=== PATIENT | female | born 1965 | race Hispanic/Latino ===

== ENCOUNTER 2024-02-13 09:17 | Outpatient (CLI) | payer OTHER | END 2024-02-13 09:18 | disposition home or self-care (01) | LOC: SCSMRI 09:17 | PROVIDERS: ATTEND Nurse Practitioner Family | DX: Z02.6 Encounter for examination for insurance purposes (principal); S83.92XA Sprain of unspecified site of left knee, initial encounter; S83.242A Other tear of medial meniscus, current injury, left knee, initial encounter; S83.282A Other tear of lateral meniscus, current injury, left knee, initial encounter; M67.462 Ganglion, left knee ==

== ENCOUNTER 2024-03-06 12:12 | Outpatient (CLI) | payer BC ==
[2024-03-06 13:38] LABS: #Basophils 0.02 10x3/uL (0.0-0.2); #Eosinphils 0.11 10x3/uL (0.0-0.5); #Monocytes 0.44 10x3/uL (0.0-1.1); #Neutrophils 2.59 10x3/uL (1.5-8.4); %Basophils 0.3 % (0.0-2.0); %Eosinophils 1.7 % (0.0-6.0); %Lymphocytes 49.8 % (18.0-47.0); %Monocytes 6.9 % (0.0-10.0); Hematocrit 38.5 % (34.9-44.5); Hemoglobin 13.4 g/dL (12.0-15.5); Mean Corpuscular HGB CONC 34.8 g/dL (32.0-36.0); Mean Corpuscular Hemoglobin 32.8 pg (27.0-33.0); Mean Corpuscular Volume 94.1 fL (81.6-98.3); Mean Platelet Volume 9.1 fL (7.4-10.4); Platelet Count 340 10x3/uL (150-450); RBC Distribution Width 11.9 % (11.5-14.5); Red Blood Cell (RBC) Count 4.09 10x6/uL (3.90-5.03); White Blood Cell (WBC) Count 6.3 10x3/uL (3.5-10.5)
[2024-03-06 13:55] LABS: Anion Gap 14 mmol/L (10-20); BUN (Urea Nitrogen) 20 mg/dL (9.8-20.1); Calc. Creatinine Clearance 0 mL/min (70-130); Calcium 9.1 mg/dL (7.8-10.44); Carbon Dioxide 25 mmol/L (22-29); Chloride 105 mmol/L (98-107); Estimated GFR 78; Glucose 88 mg/dL (70-105); Sodium 140 mmol/L (136-145)
== END 2024-03-06 12:13 | disposition home or self-care (01) ==
LOC: LABBT 12:12
PROVIDERS: ATTEND Orthopaedic Surgery
DX: Z01.818 Encounter for other preprocedural examination (principal); S83.242A Other tear of medial meniscus, current injury, left knee, initial encounter; S83.282A Other tear of lateral meniscus, current injury, left knee, initial encounter
CPT/HCPCS: 80048; 85025; 93005; 93010

== ENCOUNTER 2024-03-07 06:56 | Day surgery (SDC) | payer OTHER ==
[2024-03-06 12:39] VITALS: BMI 27.4
[2024-03-07] MEDS ORDERED: Bupivacaine PF 0.5% 30 ML VIAL ONE (08:15)
[2024-03-07] MEDS ORDERED: fentaNYL 50 mcg/mL 1 mL Vial ONE ×4 (08:15→12:55)
[2024-03-07] MEDS ORDERED: Midazolam HCl 2 mg/2 ml Vial ONE (08:15)
[2024-03-07] MEDS ORDERED: CEFAZOLIN 2 GM VIAL ONE (10:06)
[2024-03-07] MEDS ORDERED: Sodium Chloride 0.9% 100 ML ONE (10:06)
[2024-03-07] MEDS ORDERED: Ondansetron PF 4 MG/2 ML Vial ONE (10:17)
[2024-03-07] MEDS ORDERED: Dexamethasone 4 mg/ml Vial ONE (10:17)
[2024-03-07] MEDS ORDERED: Ketorolac Tromethamine 30 MG (1 mL) VIAL ONE (10:17)
[2024-03-07] MEDS ORDERED: Lidocaine 1% PF 5 ML VIAL ONE (10:17)
[2024-03-07] MEDS ORDERED: PROPOFOL 20 ML ONE (10:17)
[2024-03-07] MEDS ORDERED: Promethazine HCl 25 MG/ML VIAL ONE (12:15)
[2024-03-07] MEDS ORDERED: HYDROcodone/Acetaminophen 5/325 mg Tablet ONE (12:56)
== END 2024-03-07 14:09 | disposition home or self-care (01) ==
LOC: SDC 06:56 → EDSTATUS 03-16 12:30
PROVIDERS: ATTEND Orthopaedic Surgery
PROC: 3E0T3BZ Introduction of Anesthetic Agent into Peripheral Nerves and Plexi, Percutaneous Approach (ICD-10-PCS; principal; 2024-03-07)
PROC: 0SBD4ZZ Excision of Left Knee Joint, Percutaneous Endoscopic Approach (ICD-10-PCS; principal; 2024-03-07)
DX: S83.282A Other tear of lateral meniscus, current injury, left knee, initial encounter (principal); S83.242A Other tear of medial meniscus, current injury, left knee, initial encounter; M23.052 Cystic meniscus, posterior horn of lateral meniscus, left knee; M94.262 Chondromalacia, left knee; X58.XXXA Exposure to other specified factors, initial encounter
CPT/HCPCS: J0665; J1100; J1885; J2250; J2405; J2550; J2704; J3010; J3490